=== PATIENT | male | born 1965 | race Caucasian/White ===

== ENCOUNTER 2017-07-14 18:50 | Emergency (ER) | payer OTHER ==
[~2017-07-14] VITALS: Ht 182.9 cm; Wt 80.8 kg
[2017-07-14 18:56] VITALS: Ht 182.9 cm; Wt 80.8 kg
[2017-07-14] MEDS ORDERED: ONDANSETRON INJ 2 MG/ML 2 ML VIAL IV STA (19:10)
[2017-07-14] MEDS ORDERED: SODIUM CHLORIDE 0.9% 1000ML 1,000 ML IV STA (19:10)
[2017-07-14] MEDS ORDERED: LOPERAMIDE HCL 2 MG CAP PO STA (19:10)
[2017-07-14] MEDS ORDERED: KETOROLAC TROMETHAMINE 30 MG/ML VIAL IV STA (19:10)
[2017-07-14 19:54] LABS: BASO % 0.1 %; BASO ABS # 0.01 K/uL (0-0.2); HEMATOCRIT 52.9 % (42-52); HEMOGLOBIN 19.9 g/dL (14.0-18.0); IG# 0.03 K/uL (0.00-0.02); LYMPH % 5.6 %; LYMPH ABS # 0.64 K/uL (1.2-3.4); MEAN CELL VOLUME 87.9 fL (80-100); MEAN CORPUSCULAR HEMOGLOBIN 33.1 pg (25-34); MEAN CORPUSCULAR HGB CONC 37.6 g/dl (32-36); MONO % 6.3 %; MONO ABS # 0.72 K/uL (0.11-0.59); NEUT % 87.7 %; NEUT ABS # 10.02 K/uL (1.4-6.5); PLATELET COUNT 190 K/uL (130-400); RED CELL DISTRIBUTION WIDTH CV 12.6 % (11.5-14.5); RED CELL DISTRIBUTION WIDTH SD 40.6 fL (36.4-46.3); WHITE BLOOD COUNT 11.42 K/uL (4.8-10.8)
[2017-07-14] MEDS ORDERED: ATOR-22 PO (20:13)
[2017-07-14] MEDS ORDERED: OMEG10007 PO (20:14)
[2017-07-14] MEDS ORDERED: MULT-506 PO (20:14)
[2017-07-14 20:17] LABS: CALCIUM 10.3 mg/dl (8.5-10.1); CREATININE 1.67 mg/dl (0.60-1.40); POTASSIUM 3.9 mmol/L (3.5-5.1); TOTAL PROTEIN 9.9 gm/dl (6.4-8.2)
[2017-07-14] MEDS ORDERED: ONDA4TAB10 SL (21:03)
--- NOTE | 2017-07-14 21:03 | EMERGENCY ROOM VISIT NOTE ---
History Report prepared by [place]: Ariela Cr Under the Supervision of: Dr. Preet Delgado D.O. First contact with patient: 19:05 Chief Complaint: DEHYDRATION Stated Complaint: THROWING UP, NAUSEA, DIARRHEA History of Present Illness The patient is a 51 year old male who presents to the Emergency Room with complaints of persistent vomiting starting 1500 yesterday. The patient thinks he might have caught something from his kids. He has vomited 8-9 times since yesterday. He currently feels nauseous. He has also had diarrhea. He reports generalized abdominal discomfort. He thinks there was some blood in his vomit. Source of History: patient Onset: 1500 Position: abdomen Quality: other (vomiting) Timing: other (persistent) Associated Symptoms: + nausea, + abdominal pain, + diarrhea Review of Systems See HPI for pertinent positives & negatives. A total of 10 systems reviewed and were otherwise negative. Past Medical & Surgical Medical Problems: (1) High cholesterol Family History No pertinent family history stated. Social History Smoking Status: Never Smoker Marital Status: Housing Status: lives with family Occupation Status: employed Current/Historical Medications Scheduled Atorvastatin (Lipitor), 1 TAB PO DAILY Atorvastatin (Lipitor), 20 MG PO DAILY Fish Oil (Lucan-3), 4 CAP PO DAILY Multivitamin (Multivitamin), 1 TAB PO DAILY Ondasetron Odt (Zofran Odt), 4 MG SL Q6H Allergies Coded Allergies: NO KNOWN DRUG ALLERGIES (Unverified Allergy, Unknown, none, 07/14/17) Physical Exam Vital Signs Date Time Temp Pulse Resp B/P (MAP) Pulse Ox O2 Delivery O2 Flow Rate FiO2 07/14/17 18:56 91 20 130/96 99 Room Air Physical Exam CONSTITUTIONAL/VITAL SIGNS: Reviewed / noted above. GENERAL: Non-toxic in appearance. INTEGUMENTARY: Warm, dry, and [place]. HEAD: Normocephalic. EYES: without scleral icterus or trauma. ENT/OROPHARYNX: clear and moist. LYMPHADENOPATHY/NECK: Is supple without lymphadenopathy or meningismus. RESPIRATORY: Lungs clear and equal. CARDIOVASCULAR: Regular rate and rhythm. GI/ABDOMEN: Soft and nontender. No organomegaly or pulsatile mass. No rebound or guarding. Normal bowel sounds. EXTREMITIES: Warm and well perfused. BACK: No CVA tenderness. NEUROLOGICAL: Intact without focal deficits. PSYCHIATRIC: normal affect. MUSCULOSKELETAL: Normally developed with good muscle tone. Medical Decision & Procedures Laboratory Results 07/14/17 19:40 Red Blood Count 6.02, Mean Corpuscular Volume 87.9, Mean Corpuscular Hemoglobin 33.1, Mean Corpuscular Hemoglobin Concent 37.6, Mean Platelet Volume 10.0, Neutrophils (%) (Auto) 87.7, Lymphocytes (%) (Auto) 5.6, Monocytes (%) (Auto) 6.3, Eosinophils (%) (Auto) 0.0, Basophils (%) (Auto) 0.1, Neutrophils # (Auto) 10.02, Lymphocytes # (Auto) 0.64, Monocytes # (Auto) 0.72, Eosinophils # (Auto) 0.00, Basophils # (Auto) 0.01 07/14/17 19:40 Test 07/14/17 19:40 White Blood Count 11.42 K/uL (4.8-10.8) Red Blood Count 6.02 M/uL (4.7-6.1) Hemoglobin 19.9 g/dL (14.0-18.0) Hematocrit 52.9 % (42-52) Mean Corpuscular Volume 87.9 fL (80-100) Mean Corpuscular Hemoglobin 33.1 pg (25-34) Mean Corpuscular Hemoglobin Concent 37.6 g/dl (32-36) Platelet Count 190 K/uL (130-400) Mean Platelet Volume 10.0 fL (7.4-10.4) Neutrophils (%) (Auto) 87.7 % Lymphocytes (%) (Auto) 5.6 % Monocytes (%) (Auto) 6.3 % Eosinophils (%) (Auto) 0.0 % Basophils (%) (Auto) 0.1 % Neutrophils # (Auto) 10.02 K/uL (1.4-6.5) Lymphocytes # (Auto) 0.64 K/uL (1.2-3.4) Monocytes # (Auto) 0.72 K/uL (0.11-0.59) Eosinophils # (Auto) 0.00 K/uL (0-0.5) Basophils # (Auto) 0.01 K/uL (0-0.2) RDW Standard Deviation 40.6 fL (36.4-46.3) RDW Coefficient of Variation 12.6 % (11.5-14.5) Immature Granulocyte % (Auto) 0.3 % Immature Granulocyte # (Auto) 0.03 K/uL (0.00-0.02) Anion Gap 10.0 mmol/L (3-11) Est Creatinine Clear Calc Drug Dose 58.7 ml/min Estimated GFR () 54.9 Estimated GFR (Non- 47.3 BUN/Creatinine Ratio 21.4 (10-20) Calcium Level 10.3 mg/dl (8.5-10.1) Total Bilirubin 0.7 mg/dl (0.2-1) Direct Bilirubin 0.2 mg/dl (0-0.2) Aspartate Amino Transf (AST/SGOT) 31 U/L (15-37) Alanine Aminotransferase (ALT/SGPT) 60 U/L (12-78) Alkaline Phosphatase 85 U/L (45-117) Total Protein 9.9 gm/dl (6.4-8.2) Albumin 5.0 gm/dl (3.4-5.0) Lipase 96 U/L (73-393) Laboratory results as stated above per my review. Medications Administered Medications (Trade) Dose Ordered Sig/Sherman Route Start Time Stop Time Status Last Admin Dose Admin Sodium Chloride 1,000 ml @ 999 mls/hr Q1H1M STAT IV 07/14/17 19:10 07/14/17 20:10 DC 07/14/17 19:40 999 MLS/HR Ondansetron HCl (Zofran Inj) 4 mg NOW STAT IV 07/14/17 19:10 07/14/17 19:12 DC 07/14/17 19:41 4 MG Ketorolac Tromethamine (Toradol Inj) 30 mg NOW STAT IV 07/14/17 19:10 07/14/17 19:12 DC 07/14/17 19:42 30 MG Loperamide HCl (Imodium Cap) 2 mg NOW STAT PO 07/14/17 19:10 07/14/17 19:12 DC 07/14/17 19:41 2 MG ED Course 1906: Previous medical records were reviewed. The patient was evaluated in room B10. A complete history and physical examination was performed. 1909: Imodium Cap 2 mg PO, Toradol Inj 30 mg IV, Zofran Inj 4 mg IV, Sodium Chloride 1000 ml @ 999 mls/hr IV. 2104: On reevaluation, the patient is resting comfortably. I discussed the results and findings with the patient. He verbalized agreement of the treatment plan. He was discharged home. 2114: Zofran Odt 4 mg 1 homepack PO. Medical Decision Differential diagnosis: Etiologies such as gastroenteritis, food borne illness, infections, appendicitis , diverticulitis, inflammatory bowel disease, obstruction, GI bleed, biliary pathology, as well as others were entertained. This is a 51-year-old male who presents to the ED with a chief complaint of vomiting diarrhea and dehydration. The patient states that the symptoms started yesterday around 3 PM. He states that his kids also were sick recently with similar symptoms. The patient reports that he is on a trip and is from [place]. He was traveling through and overnight stayed in a hotel because of his vomiting and diarrhea. His symptoms persisted today. He states that he vomited or had diarrhea at least 9-11 times in the past 24 hours. The patient' s physical exam and vital signs are normal. CBC was unremarkable. Chemistry panel revealed a BUN of 36 and a creatinine of 1.67 suggesting dehydration. The patient was hydrated with IV fluids, IV Zofran and given IV Toradol for discomfort and Imodium p.o. for his diarrhea. He was told the results. His symptoms did improve. Zofran home pack was provided. He was felt to be stable for discharge. Medication Reconcilliation Current Medication List: was personally reviewed by me Blood Pressure Screening Patient's blood pressure: Elevated blood pressure Blood pressure disposition: Elevated BP felt to be situational Impression Primary Impression: Nausea vomiting and diarrhea Scribe Attestation The scribe's documentation has been prepared under my direction and personally reviewed by me in its entirety. I confirm that the note above accurately reflects all work, treatment, procedures, and medical decision making performed by me. Departure Information Dispostion Home / Self-Care Prescriptions Ondasetron Odt (ZOFRAN ODT) 4 Mg Tab 4 MG SL Q6H for Nausea, #15 TAB Prov: Preet Delgado D.O. 07/14/17 Patient Instructions My [facility] Additional Instructions Zofran: Allow one tablet to dissolve under the tongue every 6 hours as needed for nausea or vomiting. Follow-up with your doctor for further care and evaluation in 1-2 days if symptoms persist. Return to the emergency department for worsening or new symptoms or any concerns. You have been examined and treated today on an emergency basis only. This is not a substitute for, or an effort to provide, complete comprehensive medical care. It is impossible to recognize and treat all injuries or illnesses in a single emergency department visit. It is therefore important that you follow up closely with your doctor. Call as soon as possible for an appointment.
[2017-07-14] MEDS ORDERED: ONDANSETRON HOME PACK 4MG OD TAB PO ONE (21:15)
[2017-07-14 21:20] VITALS: BP 127/90; PULSE 82; O2SAT 98
== END 2017-07-14 21:21 | disposition home or self-care (01) ==
LOC: C.EDB 18:52
DX: R11.2 Nausea with vomiting, unspecified (principal); R19.7 Diarrhea, unspecified; E78.00 Pure hypercholesterolemia, unspecified